=== PATIENT | male | born 2000 | race Asian ===

== ENCOUNTER 2023-09-29 10:56 | Emergency (ER) | payer OTHER ==
[~2023-09-29] VITALS: Ht 170.2 cm; Wt 71.8 kg
[2023-09-29 10:58] VITALS: BP 123/61; PULSE 70; RESP 16; TEMP 97.8; O2SAT 99
[2023-09-29] MEDS ORDERED: DOXY-411 PO (11:03)
[2023-09-29] MEDS ORDERED: CefTRIAXone 250MG IM Kit w/LIDOcaine IM ONE (11:05)
== END 2023-09-29 11:12 | disposition home or self-care (01) ==
LOC: ER 10:56
DX: A74.9 Chlamydial infection, unspecified (principal)
CPT/HCPCS: 99283